=== PATIENT | female | born 2000 | race Caucasian/White ===

== ENCOUNTER 2024-12-27 05:26 | Emergency (ER) | payer OTHER, SELFPAY ==
[2024-12-27 05:33] VITALS: BP 123/102
[2024-12-27 05:38] VITALS: BP 136/87
[2024-12-27 05:40] VITALS: BP 136/87; BMI 24.9
[2024-12-27 06:00] VITALS: BP 126/73
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
[2024-12-27] MEDS: MOTRIN 800 MG PO (06:16)
== END 2024-12-27 07:55 | disposition home or self-care (01) ==
LOC: EMR 05:26
PROVIDERS: EMERGENCY PHYSICIAN Emergency Medicine
DX: S42.022A Displaced fracture of shaft of left clavicle, initial encounter for closed fracture (principal); S50.812A Abrasion of left forearm, initial encounter; S80.812A Abrasion, left lower leg, initial encounter; V47.5XXA Car driver injured in collision with fixed or stationary object in traffic accident, initial encounter; J45.909 Unspecified asthma, uncomplicated
CPT/HCPCS: 99284; 71046; 73000; 73610